=== PATIENT | female | born 1990 | race Caucasian/White ===

== ENCOUNTER → 2016-07-17 | Outpatient (CLI) | payer BC, OTHER ==
[2016-07-17 12:15] LABS: Glucose 78 mg/dL (74-99); Non-African American GFR(MDRD) >60 (>60 ml/min/1.73 sqM)
[2016-07-17 12:19] LABS: CH 30.6; HCT 38.9 % (34.0-46.0); HDW 2.85; MCH 30.3 pg (25.0-35.0); MCHC 33.4 g/dL (31.0-37.0); MCV 90.7 fL (80.0-100.0); Mean Platelet Volume 7.8; RBC 4.29 m/uL (3.80-5.40); RDW 13.9 % (11.5-15.5); WBC 7.6 k/uL (3.8-10.6)
[2016-07-17 12:23] LABS: Appearance,Urine Cloudy (Clear); Bacteria,Urine Occasional /hpf; Bilirubin,Urine Negative (Negative); Glucose,Urine (UA) Negative (Negative); Ketones,Urine Negative (Negative); Leukocyte Esterase,Urine Moderate (Negative); Mucus,Urine Rare /hpf; Nitrite,Urine Negative (Negative); Particle Count 7003; Protein,Urine Negative (Negative); RBC,Urine 1 /hpf (0-5); Specific Gravity,Urine 1.016 (1.001-1.035); Squamous Epithelial Cell,Urine 18 /hpf (0-4); UA Billing (MACRO vs. MICRO) MICRO; Urobilinogen,Urine <2.0 mg/dL (<2.0); WBC,Urine 3 /hpf (0-5)
[2016-07-17 12:44] LABS: Hepatitis B Surface Ag Index 0.07
[2016-07-17 15:32] LABS: Treponemal Ab Non-Reactive (Non-Reactive)
[2016-07-18 07:45] LABS: HIV-1/HIV-2 Ab Screen NONREAC (NON REAC)
== END | disposition home or self-care (01) ==
LOC: LABWHC1 11:30
PROVIDERS: ATTEND Obstetrics & Gynecology
DX: Z34.92 Encounter for supervision of normal pregnancy, unspecified, second trimester (principal); Z3A.00 Weeks of gestation of pregnancy not specified
CPT/HCPCS: 36415; 81001; 82565; 82947; 85027; 86762; 86777; 86778; 86780; 86850; 86900; 86901; 87086; 87340; 87389; 87491; 87591

== ENCOUNTER → 2016-08-21 | Outpatient (CLI) | payer BC, OTHER ==
[2016-08-21 10:16] LABS: CH 31.1; CHCM 34.1; HCT 36.9 % (34.0-46.0); HDW 2.89; HGB 12.6 gm/dL (11.4-16.0); MCH 31.4 pg (25.0-35.0); MCHC 34.2 g/dL (31.0-37.0); MCV 91.7 fL (80.0-100.0); Mean Platelet Volume 8.7; RBC 4.02 m/uL (3.80-5.40); WBC 6.7 k/uL (3.8-10.6)
[2016-08-21 10:29] LABS: Appearance,Urine Cloudy (Clear); Bacteria,Urine Occasional /hpf; Bilirubin,Urine Negative (Negative); Glucose,Urine (UA) Negative (Negative); Ketones,Urine Negative (Negative); Leukocyte Esterase,Urine Trace (Negative); Mucus,Urine Few /hpf; Nitrite,Urine Negative (Negative); Particle Count 7658; Protein,Urine Trace (Negative); RBC,Urine 3 /hpf (0-5); Specific Gravity,Urine 1.021 (1.001-1.035); Squamous Epithelial Cell,Urine 21 /hpf (0-4); UA Billing (MACRO vs. MICRO) MICRO; Urobilinogen,Urine <2.0 mg/dL (<2.0); WBC,Urine 4 /hpf (0-5)
[2016-08-21 10:41] LABS: ALT 17 U/L (9-52); AST 14 U/L (14-36); LDH 347 U/L (313-618); Non-African American GFR(MDRD) >60 (>60 ml/min/1.73 sqM)
== END | disposition home or self-care (01) ==
LOC: LABWHC1 08:36
PROVIDERS: ATTEND Obstetrics & Gynecology
DX: Z34.82 Encounter for supervision of other normal pregnancy, second trimester (principal); Z3A.00 Weeks of gestation of pregnancy not specified
CPT/HCPCS: 36415; 81001; 82565; 82950; 83615; 84443; 84450; 84460; 84550; 85027

== ENCOUNTER → 2016-09-01 | Outpatient (CLI) | payer BC, OTHER ==
[2016-09-01 12:46] LABS: Glucose 3 Hour, Gest 106 mg/dL
== END | disposition home or self-care (01) ==
LOC: LABWHC1 08:43
PROVIDERS: ATTEND Obstetrics & Gynecology
DX: O99.810 Abnormal glucose complicating pregnancy (principal); Z3A.00 Weeks of gestation of pregnancy not specified
CPT/HCPCS: 36415; 82951; 82952

== ENCOUNTER 2016-11-02 12:36 | Inpatient (IN) | payer BC, OTHER ==
[2016-11-02] MEDS ORDERED: TERBUTALINE 1 MG/ML VIAL SQ PRN (12:51)
[2016-11-02] MEDS ORDERED: METHYLERGONOVINE 0.2 MG/ML 1 ML AMP IM PRN (12:51)
[2016-11-02] MEDS ORDERED: OXYTOCIN 10 UNIT/ML 1 ML VIAL IM PRN (12:51)
[2016-11-02] MEDS ORDERED: LIDOCAINE 1% (PF) 10 MG/ML (30 ML SDV) SQ PRN (12:51)
[2016-11-02] MEDS ORDERED: CARBOPROST TROMETHAMINE 250 MCG/ML 1 ML AMP IM PRN (12:51)
[2016-11-02] MEDS ORDERED: OXYTOCIN 20 UNITS/1000 ML NS 1,000 ML IV SCH (13:00)
[2016-11-02] MEDS: LACTATED RINGERS 1,000 ML IV SCH ×2 (13:26→15:34)
[2016-11-02 13:28] LABS: Basophils % (A) 0 %; CH 30.6; CHCM 34.5; Eosinophils % (A) 1 %; HCT 35.1 % (34.0-46.0); HDW 3.39; HGB 11.7 gm/dL (11.4-16.0); Luc # (Auto) 0.15; Luc % (Auto) 2; Lymphocytes # (A) 1.3 k/uL (1.0-4.8); Lymphocytes % (A) 21 %; MCH 29.9 pg (25.0-35.0); MCHC 33.5 g/dL (31.0-37.0); MCV 89.4 fL (80.0-100.0); Mean Platelet Volume 8.8; Monocytes # (A) 0.4 k/uL (0-1.0); Monocytes % (A) 7 %; Neutrophils # (A) 4.3 k/uL (1.3-7.7); Neutrophils % (A) 69 %; RBC 3.92 m/uL (3.80-5.40); RDW 14.1 % (11.5-15.5); WBC 6.2 k/uL (3.8-10.6); WBC (Perox) 6.18
[2016-11-02 13:40] VITALS: BMI 30.7
[2016-11-02] MEDS ORDERED: fentaNYL (PF) 50 MCG/ML 5 ML AMP ONE (15:42)
[2016-11-02] MEDS ORDERED: METOCLOPRAMIDE 10 MG TAB ONE (15:42)
[2016-11-02] MEDS ORDERED: BUPIVACAINE (PF) 0.25% 30 ML VIAL ONE (15:42)
[2016-11-02] MEDS ORDERED: BUPIVACAINE (PF) 0.25% 25 ML, fentaNYL (PF) 200 MCG in SODIUM CHLORIDE 0.9% 71 ML EPIDURAL ONE (16:00)
--- NOTE | 2016-11-02 17:19 | P.HPOB ---
History of Present Illness H&P Date: 11/02/16 Chief Complaint: IUP term: oliogohydramnios: Attention Samantha is a 26-year-old at 37 weeks gestation who is seen today at high risk for her normal visit due to hypertension and positive luis. Ring her visit and ultrasound was performed showing oligohydramnios with an CHRISTY of 3. The biophysical profile was otherwise 6 out of 8. They did notify me and then transferred her by private car back to [facility] for induction. Artificial rupture membranes was then performed with clear fluid noted. She was dilated to approximately 3 cm 80% effaced -2 station. Her Precis course has been impacted on hypertension for which we've been following her very closely and we did send her to high risk for monitoring and evaluation. She also has positive PATRICIO and she is therefore been having nonstress tests twice week with weekly Doppler and ultrasounds. She denies any leaking of fluid and is unclear why the amniotic fluid index is so decreased today. However at the recommendation of the MFM department at [facility] we are inducing her today. Etta currently vital signs are stable and afebrile. Heart regular, lungs clear , extremities without pain. Abdomen is soft and gravid uterus is noted. heart tones have been in the 130s to 150s and are reactive. Assessment intrauterine at 37 weeks with oligohydramnios and hypertension Plan induction of labor. She expects using epidural for analgesia. Pitocin augmentation of labor has also been initiated. Past Medical History Past Medical History: No Reported History Additional Past Medical History / Comment(s): Lupus History of Any Multi-Drug Resistant Organisms: None Reported Past Surgical History: No Surgical Hx Reported Additional Past Surgical History / Comment(s): wisdom teeth, cyst removal from wrist Past Anesthesia/Blood Transfusion Reactions: No Reported Reaction Past Psychological History: No Psychological Hx Reported Smoking Status: Never smoker Past Alcohol Use History: None Reported Past Drug Use History: None Reported - Past Family History Mother Family Medical History: No Reported History Medications and Allergies Home Medications Medication Instructions Recorded Confirmed Type Pnv with Ca,No.72/Iron/FA 1 tab PO DAILY 06/08/16 11/02/16 History [ Plus Tablet] Allergies Allergy/AdvReac Type Severity Reaction Status Date / Time No Known Allergies Allergy Verified 11/02/16 12:51 Exam Osteopathic Statement: *. No significant issues noted on an osteopathic structural exam other than those noted in the History and Physical/Consult. - Vital Signs Vital signs: Vital Signs Temp Pulse Resp BP Pulse Ox 11/02/16 12:51 96.3 F L 116 H 18 132/72 100 Intake and Output 11/02/16 11/02/16 11/02/16 06:59 14:59 22:59 Intake Total 1200 Balance 1200 Intake: IV 1000 Lactated Ringers 1,000 ml 1000 @ 125 mls/hr IV .Q8H ROCHELLE Rx#:[id number] Oral 200 Other: # Voids 3 Weight 86.183 kg Patient Weight 11/03/16 06:59 Weight 86.183 kg Results Result Diagrams: 11/02/16 13:10 Abnormal Lab Results - Last 24 Hours (Table) 11/02/16 Range/Units 13:10 Plt Count 135 L (150-450) k/uL
--- NOTE | 2016-11-02 18:00 | P.PROBDLV ---
Vaginal Delivery Note - . Vaginal Delivery Note: Patient progressed complete and pushing with spontaneous vaginal delivery of a male over an intact perineum. Falling deliver the head anterior posterior shoulders were delivered with gentle downward upper traction from right occiput anterior position. Mouth nares were then bulb suctioned and the remainder the baby was delivered. Baby was then placed on mother's abdomen where the umbilical cord was allowed to pulsate for approximately 30 seconds prior to clamping and cutting. Once clamped cut and nursery personnel was present to assume care and placenta was then delivered intact. scores and weight are both pending on baby but both mother and baby currently appear stable.
[2016-11-02] MEDS ORDERED: LANOLIN CREAM 5 GM TUBE TOPICAL PRN (18:25)
[2016-11-02] MEDS ORDERED: HYDROCORTISONE 2.5% RECTAL CREAM 30 GM TUBE RECTAL PRN (18:25)
[2016-11-02] MEDS ORDERED: ZOLPIDEM 5 MG TAB PO PRN (18:25)
[2016-11-02] MEDS ORDERED: BENZOCAINE/MENTHOL SPRAY 1 GM/SPRAY AEROSOL TOPICAL PRN (18:25)
[2016-11-02] MEDS ORDERED: IBUPROFEN 600 MG TAB PO PRN (18:25)
[2016-11-02] MEDS ORDERED: SIMETHICONE 80 MG CHEWABLE PO PRN (18:25)
[2016-11-02] MEDS ORDERED: Acetaminophen-Codeine 300-30mg TAB PO PRN (18:25)
[2016-11-02] MEDS ORDERED: diphenhydrAMINE 25 MG CAP PO PRN (18:25)
[2016-11-02] MEDS ORDERED: diphenhydrAMINE 50 MG/ML 1 ML VIAL IVP PRN ×2 (18:25)
[2016-11-02] MEDS ORDERED: WITCH HAZEL 1 EACH MED..PAD TOPICAL PRN (18:25)
[2016-11-02] MEDS ORDERED: ACETAMINOPHEN TAB 325 MG TAB PO PRN (18:25)
[2016-11-02] MEDS ORDERED: diphenhydrAMINE 50 MG CAP PO PRN (18:25)
[2016-11-02] MEDS: SENNOSIDES-DOCUSATE SODIUM 1 EACH TAB PO SCH (21:17)
[2016-11-03] MEDS: SENNOSIDES-DOCUSATE SODIUM 1 EACH TAB PO SCH (07:42)
[2016-11-03] MEDS: Acetaminophen-Codeine 300-30mg TAB PO PRN ×2 (07:42→13:31)
[2016-11-03 08:35] VITALS: RESP 18
--- NOTE | 2016-11-03 12:26 | P.DS ---
Providers Date of admission: 11/02/16 12:36 Expected date of discharge: 11/03/16 Attending physician: Nate Rodríguez Primary care physician: Stated None Hospital Course: Samantha is doing very well as day 1. She is ambulating, voiding, and she is tolerating her diet. She voices no complaints. She is requesting discharge home today. Vital signs are stable and afebrile. Her regular, lungs clear, extremities without pain. Abdomen soft uterus is firm and lochia is reported to be light. Assessment day 1. Plan discharged home follow me in 6 weeks. Prescription from Motrin and Tylenol No. 3 have been provided. All questions are answered for her prior to her discharge she is stable for discharge this evening. Patient Condition at Discharge: Good Plan - Discharge Summary New Discharge Prescriptions: Acetaminophen-Codeine 300-30mg [Tylenol #3] 1 tab PO Q4H PRN #30 tablet PRN Reason: Pain Ibuprofen [Motrin] 600 mg PO Q6HR PRN #30 tab PRN Reason: Pain Discharge Medication List Pnv with Ca,No.72/Iron/FA [ Plus Tablet] 1 tab PO DAILY 06/08/16 [ History] Acetaminophen-Codeine 300-30mg [Tylenol #3] 1 tab PO Q4H PRN #30 tablet [Rx] Ibuprofen [Motrin] 600 mg PO Q6HR PRN #30 tab 11/03/16 [Rx] Follow up Appointment(s)/Referral(s): Nate Rodríguez DO [Doctor of Osteopathic Medicine] - 6 Weeks Activity/Diet/Wound Care/Special Instructions: Heavy lifting, limit stairs and driving, and pelvic rest. If any high temperatures, heavy bleeding, or severe pain call my office or report to the emergency room Discharge Disposition: HOME SELF-CARE
[2016-11-03 16:20] VITALS: BP 144/61; PULSE 102; TEMP 97.1
== END 2016-11-03 18:34 | disposition home or self-care (01) | DRG 775 ==
LOC: 4FBP 12:36
PROVIDERS: ADMIT Obstetrics & Gynecology; ATTEND Obstetrics & Gynecology
PROC: 10E0XZZ Delivery of Products of Conception, External Approach (ICD-10-PCS; principal; 2016-11-02)
PROC: 00HU33Z Insertion of Infusion Device into Spinal Canal, Percutaneous Approach (ICD-10-PCS; principal; 2016-11-02)
PROC: 10907ZC Drainage of Amniotic Fluid, Therapeutic from Products of Conception, Via Natural or Artificial Opening (ICD-10-PCS; principal; 2016-11-02)
PROC: 3E0R3CZ (ICD-10-PCS; principal; 2016-11-02)
DX: O41.03X0 Oligohydramnios, third trimester, not applicable or unspecified (principal); O16.4 Unspecified maternal hypertension, complicating childbirth; Z37.0 Single live birth; Z3A.37 37 weeks gestation of pregnancy
CPT/HCPCS: 85025; 88307

== ENCOUNTER → 2017-01-25 | Outpatient (CLI) | payer BC, OTHER ==
[2017-01-25 14:00] LABS: Basophils % (A) 1 %; CH 30.2; CHCM 34.5; Eosinophils # (A) 0.2 k/uL (0-0.7); Eosinophils % (A) 4 %; HCT 43.7 % (34.0-46.0); HDW 3.06; HGB 14.5 gm/dL (11.4-16.0); Luc # (Auto) 0.09; Luc % (Auto) 2; Lymphocytes # (A) 1.7 k/uL (1.0-4.8); Lymphocytes % (A) 40 %; MCH 29.2 pg (25.0-35.0); MCHC 33.2 g/dL (31.0-37.0); MCV 88.1 fL (80.0-100.0); Mean Platelet Volume 9.1; Monocytes # (A) 0.3 k/uL (0-1.0); Monocytes % (A) 8 %; Neutrophils # (A) 1.9 k/uL (1.3-7.7); Neutrophils % (A) 45 %; RBC 4.96 m/uL (3.80-5.40); RDW 15.3 % (11.5-15.5); WBC 4.2 k/uL (3.8-10.6); WBC (Perox) 3.97
== END | disposition home or self-care (01) ==
LOC: LABPAT 13:20
PROVIDERS: ATTEND Obstetrics & Gynecology
DX: Z01.812 Encounter for preprocedural laboratory examination (principal)
CPT/HCPCS: 85025

== ENCOUNTER 2017-01-28 07:18 | Day surgery (SDC) | payer BC, OTHER ==
[~2017-01-28 07:18] MED LIST: Pre Op ABX Message 1 EACH MISC MISCELLANE ONE
[2017-01-28] MEDS ORDERED: LIDOCAINE 1% 20 ML VIAL (10MG/ML) FOR IV START INTRADERMA ONE (07:57)
[2017-01-28] MEDS ORDERED: ONDANSETRON 4 MG/2 ML VIAL IVP ONE (08:01)
[2017-01-28] MEDS ORDERED: ONDANSETRON 4 MG/2 ML VIAL IVP PRN (08:01)
[2017-01-28] MEDS ORDERED: LACTATED RINGERS 1,000 ML IV SCH (08:01)
[2017-01-28] MEDS ORDERED: DEXAMETHASONE SOD PHOSPHATE 10 MG/ML 1 ML VIAL IV ONE (08:01)
[2017-01-28] MEDS ORDERED: LIDOCAINE 1% 20 ML VIAL (10MG/ML) FOR IV START INTRADERMA PRN (08:01)
[2017-01-28] MEDS ORDERED: SCOPOLAMINE 1.5MG/72HR PATCH TRANSDERM ONE (08:01)
[2017-01-28] MEDS ORDERED: MIDAZOLAM 2 MG/2 ML VIAL IV PRN (08:01)
--- NOTE | 2017-01-28 08:47 | P.HPOB ---
History of Present Illness H&P Date: 01/28/17 Chief Complaint: Family planning Samantha is 26-year-old female was completed her family planning desires permanent sterilization. Risks/benefits/alternatives to laps up tubal occlusion were discussed with the patient in detail and all questions are answered for her prior to proceeding to the operating room. On physical exam her vital signs are stable and afebrile. Heart regular, lungs clear, extremities without pain. Abdomen soft nontender positive bowel sounds are noted. Pelvic exam is unremarkable. Assessment family planning. Plan laps up tubal occlusion with Filshie clips. Past Medical History Past Medical History: No Reported History Additional Past Medical History / Comment(s): Lupus History of Any Multi-Drug Resistant Organisms: None Reported Past Surgical History: No Surgical Hx Reported Additional Past Surgical History / Comment(s): wisdom teeth, cyst removal from wrist Past Anesthesia/Blood Transfusion Reactions: No Reported Reaction Past Psychological History: No Psychological Hx Reported Smoking Status: Never smoker Past Alcohol Use History: None Reported Past Drug Use History: None Reported - Past Family History Mother Family Medical History: No Reported History Medications and Allergies Home Medications Medication Instructions Recorded Confirmed Type Pnv,Calcium 72/Iron/Folic Acid 1 tab PO DAILY 06/08/16 01/28/17 History [ Plus Tablet] Allergies Allergy/AdvReac Type Severity Reaction Status Date / Time No Known Allergies Allergy Verified 01/28/17 07:48 Exam Osteopathic Statement: *. No significant issues noted on an osteopathic structural exam other than those noted in the History and Physical/Consult. - Vital Signs Vital signs: Vital Signs Pulse Resp BP Pulse Ox 01/28/17 08:13 78 16 118/70 97 Intake and Output 01/27/17 01/28/17 01/28/17 22:59 06:59 14:59 Other: Weight 70.67 kg Patient Weight 01/29/17 06:59 Weight 70.67 kg
[2017-01-28] MEDS ORDERED: PROPOFOL 10 MG/ML 20 ML VIAL IV ONE (08:55)
[2017-01-28] MEDS ORDERED: GLYCOPYRROLATE 0.2 MG/ML 2 ML VIAL ONE (08:55)
[2017-01-28] MEDS ORDERED: fentaNYL (PF) 50 MCG/ML 2 ML AMP ONE (08:55)
[2017-01-28] MEDS ORDERED: KETOROLAC 30 MG/ML 1 ML VIAL ONE (08:55)
[2017-01-28] MEDS ORDERED: ROCURONIUM BROMIDE 10 MG/ML 10 ML VIAL IV ONE (08:55)
[2017-01-28] MEDS ORDERED: SUCCINYLCHOLINE CHLORIDE 100 MG/5 ML SYR IV ONE (08:55)
[2017-01-28] MEDS ORDERED: NEOSTIGMINE 1 MG/ML 10 ML VIAL ONE (08:55)
[2017-01-28] MEDS ORDERED: LIDOCAINE 1% INJ 10MG/ML (20 ML MDV) ONE (08:55)
[2017-01-28] MEDS ORDERED: MIDAZOLAM 2 MG/2 ML VIAL ONE (08:55)
[2017-01-28] MEDS ORDERED: BUPIVACAINE (PF) 0.25% 30 ML VIAL SQ ONE (09:18)
--- NOTE | 2017-01-28 09:28 | P.OP ---
Date of Procedure: 01/28/17 Preoperative Diagnosis: Family planning Postoperative Diagnosis: Same Procedure(s) Performed: Scopic tubal occlusion with Filshie clips Implants: Anesthesia: ANDRZEJA Surgeon: Nate Rodríguez Estimated Blood Loss (ml): 5 Pathology: none sent Condition: stable Disposition: same day Indications for Procedure: Operative Findings: Normal pelvic anatomy Description of Procedure: Patient was taken to the operating suite where a general anesthetic was found be adequate. She was prepped and draped in normal sterile fashion and placed in dorsal lithotomy position. Initially a speculum was inserted into the vagina the anterior lip cervix identified and grasped with a single-tooth tenaculum. Cervix was then sounded and a manipulator was inserted without difficulty. Red rubber catheter was then used to drain the bladder of urine and the speculum and tenaculum were removed. Gloves were changed and attention was turned to down portion procedure where 2 mL of quarter percent Marcaine was injected periumbilically. Through this injected anesthetic a 5 mm skin incision was made and through this incision under direct visualization with an optical trocar and sleeve the camera was inserted. Once peritoneal placement was assured gas was left fully insufflate the abdomen and patient placed in Trendelenburg position. Second 8 mm skin incision was then made and through this incision again under direct visualization the ports sleeve was inserted suprapubically. Once this was accomplished observations pelvis were made. First the right tube than left tube had a Filshie clip applied 2-3 cm from uterine cornu. Seeing no bleeding from the mesosalpinx instruments were removed and gas was allowed to expel from the abdomen. 5 deep breaths were provided during this process ports were then removed with camera and incisions were closed subcuticularly. Sponge, lap, needle counts were all correct 2 the remaining 8 mL of quarter percent Marcaine was injected around these incisions and patient was then taken to the recovery room in stable and satisfactory condition. Minute later was removed from vagina prior to this. Plan - Discharge Summary New Discharge Prescriptions: New Acetaminophen-Codeine 300-30mg [Tylenol #3] 1 tab PO Q4H PRN #30 tablet PRN Reason: Pain Ibuprofen [Motrin] 600 mg PO Q6HR PRN #30 tab PRN Reason: Pain No Action Pnv,Calcium 72/Iron/Folic Acid [ Plus Tablet] 1 tab PO DAILY Acetaminophen-Codeine 300-30mg [Tylenol #3] 1 tab PO Q4H PRN #30 tablet PRN Reason: Pain Ibuprofen [Motrin] 600 mg PO Q6HR PRN #30 tab PRN Reason: Pain Discharge Medication List Pnv,Calcium 72/Iron/Folic Acid [ Plus Tablet] 1 tab PO DAILY 06/08/16 [ History] Acetaminophen-Codeine 300-30mg [Tylenol #3] 1 tab PO Q4H PRN #30 tablet [Rx] Ibuprofen [Motrin] 600 mg PO Q6HR PRN #30 tab 11/03/16 [Rx] Acetaminophen-Codeine 300-30mg [Tylenol #3] 1 tab PO Q4H PRN #30 tablet [Rx] Ibuprofen [Motrin] 600 mg PO Q6HR PRN #30 tab 01/28/17 [Rx] Follow up Appointment(s)/Referral(s): Nate Rodríguez DO [Doctor of Osteopathic Medicine] - 2 Weeks Activity/Diet/Wound Care/Special Instructions: Heavy lifting, limit stairs and driving, and pelvic rest. If any high temperatures, heavy bleeding, or severe pain call my office
[2017-01-28] MEDS: HYDROmorphone 1 MG/ML 1 ML SYRINGE IVP PRN ×4 (09:48→10:14)
[2017-01-28 09:57] VITALS: TEMP 97.3
[2017-01-28] MEDS ORDERED: MEPERIDINE 50 MG/ML SYRINGE IVP ONE (10:29)
[2017-01-28] MEDS ORDERED: Acetaminophen-Codeine 300-30mg TAB PO ONE (11:31)
[2017-01-28] MEDS ORDERED: METOCLOPRAMIDE 5 MG/ML 2 ML VIAL IVP ONE (12:16)
[2017-01-28 12:54] VITALS: BP 119/76; PULSE 60; RESP 18
== END 2017-01-28 12:45 | disposition home or self-care (01) ==
LOC: OR 07:18
PROVIDERS: ATTEND Obstetrics & Gynecology
DX: Z30.2 Encounter for sterilization (principal); Z79.899 Other long term (current) drug therapy
CPT/HCPCS: 58671; 81025; J2250; J1100; J2710; J2765; J2175; J2405; J2001; J3010; J1885; J1170; J0330; J2704

== ENCOUNTER 2021-10-18 11:13 | Emergency (ER) | payer OTHER ==
[2021-10-18 11:22] VITALS: BP 108/61; PULSE 95; RESP 18; TEMP 98
[2021-10-18] MEDS ORDERED: BEBTELOVIMAB (EUA) 175 MG/2 ML VIAL IV ONE (13:30)
--- NOTE | 2021-10-18 15:03 | ED ---
General Adult HPI - General Chief complaint: Upper Respiratory Infection Stated complaint: fever Time Seen by Provider: 10/18/21 13:10 Source: patient, RN notes reviewed, old records reviewed Mode of arrival: ambulatory Limitations: no limitations - History of Present Illness Initial comments: Patient is a 31-year-old female with past medical history remarkable for lupus who presents emergency Department complaining of upper respiratory symptoms. Patient states that for the last 2 to three-day she is having congestion, as well as dries fatigue and joint pain. Was not vaccinated for Covid. Presents for COVID-19 testing with her children who have similar upper respiratory symptoms. It has any chest pain, shortness breath. Denies any nausea, v omiting, abdominal pain. Has no other acute complaint at this time. - Related Data Home Medications Medication Instructions Recorded Confirmed Pnv,Calcium 72/Iron/Folic Acid 1 tab PO DAILY 06/08/16 01/28/17 [ Plus Tablet] Previous Rx's Medication Instructions Recorded Acetaminophen-Codeine 300-30mg 1 tab PO Q4H PRN #30 tablet 11/03/16 [Tylenol #3] Ibuprofen [Motrin] 600 mg PO Q6HR PRN #30 tab 11/03/16 Acetaminophen-Codeine 300-30mg 1 tab PO Q4H PRN #30 tablet 01/28/17 [Tylenol #3] Ibuprofen [Motrin] 600 mg PO Q6HR PRN #30 tab 01/28/17 Allergies Allergy/AdvReac Type Severity Reaction Status Date / Time No Known Allergies Allergy Verified 10/18/21 11:21 Review of Systems ROS Statement: Those systems with pertinent positive or pertinent negative responses have been documented in the HPI. Review of Systems: CONST: Denies fever EYES: Denies blurry vision ENT: Endorses nasal congestion C/V: Denies Chest pain RESP: Denies shortness of breath GI: Denies abdominal pain : Denies dysuria SKIN: Denies rash. MSK: Denies joint pain. NEURO: Denies headache ROS Other: All systems not noted in ROS Statement are negative. Past Medical History Past Medical History: No Reported History Additional Past Medical History / Comment(s): Lupus History of Any Multi-Drug Resistant Organisms: None Reported Past Surgical History: No Surgical Hx Reported Additional Past Surgical History / Comment(s): wisdom teeth, cyst removal from wrist Past Anesthesia/Blood Transfusion Reactions: No Reported Reaction Past Psychological History: No Psychological Hx Reported Smoking Status: Never smoker Past Alcohol Use History: None Reported Past Drug Use History: None Reported - Past Family History Mother Family Medical History: No Reported History General Exam - General Exam Comments Initial Comments: General: Appears in no acute distress. HEAD: Normal with no signs of head trauma. EYES: PERRLA, EOMI, conjunctiva normal, no discharge. ENT: Hearing grossly intact, normal oropharynx. RESPIRATORY: Clear breath sounds bilaterally. No wheezes, rales, or rhonchi. Not hypoxic. No increased work of breathing. C/V: Regular rate and rhythm. S1 and S2 auscultated, no edema, peripheral pulses 2+ and intact throughout ABD: Abd is soft, nontender, nondistended EXT: Normal range of motion, no obvious deformity SKIN: No rashes or lesions observed on exposed skin. NEURO: Alert and Oriented 4. Limitations: no limitations Course Vital Signs 10/18/21 11:21 Temperature 98 F Pulse Rate 95 Respiratory 18 Rate Blood Pressure 108/61 O2 Sat by Pulse 98 Oximetry Medical Decision Making - Medical Decision Making Based on the patient's presentation and physical exam, I'm concerned for Covid 19 infection the patient. We will obtain testing. She was in agreement this plan. Vital signs are within normal limits. No respiratory distress. No hypoxia. She does have a history of lupus and does meet criteria for monoclonal antibodies. Patient is Covid 19 positive. She did consent monoclonal antibody treatment. We discussed quarantine, as well as pulse oximeter use. I recommended she stay home from work until she is at least 2 days symptom free. She was in agreement this plan. Patient tolerated therapy well. She'll be discharged home at this time. I instructed the patient to follow up with their PCP in the next 3 days . I explained that the patient should return to the emergency department if they e xperience any worsening symptoms. Strict return precautions were discussed with the patient. The patient expressed understanding of these instructions. I answered all questions that the patient had. The patient was discharged home in good condition with their prescriptions and follow up information. - Lab Data Lab Results 10/18/21 Range/Units 11:26 Coronavirus (PCR) Detected A (Not Detectd) Disposition Clinical Impression: COVID-19 virus infection Disposition: HOME SELF-CARE Condition: Good Instructions (If sedation given, give patient instructions): Upper Respiratory Infection (ED), COVID-19 (Coronavirus Disease 2019) (ED) Is patient prescribed a controlled substance at d/c from ED?: No Referrals: None,Stated [Primary Care Provider] - 1-2 days Aby Estrada MD [REFERRING] - 1-2 days Time of Disposition: 15:00
== END 2021-10-18 15:34 | disposition home or self-care (01) ==
LOC: EC 11:13
DX: U07.1 COVID-19 (principal)
CPT/HCPCS: 87635; 99283; Q0222